=== PATIENT | female | born 1985 | race Caucasian/White ===

== ENCOUNTER 2020-02-23 12:05 | Emergency (ER) | payer SELFPAY ==
--- NOTE | 2020-02-23 14:03 | RAD REPORT ---
EXAM DESCRIPTION: Miguel Single View02/23/2020 1:51 pm CLINICAL HISTORY: PALPITATIONS COMPARISON: none FINDINGS: The lungs are moderately to markedly hyperaerated The lungs appear clear of acute infiltrate. The heart is normal size IMPRESSION: COPD without visualization acute abnormality
[2020-02-23 14:11] LABS: Absolute Lymphocytes (CBC) 2.3 K/uL (0.7-4.9); Basophils % 1.3 % (0-1.3); Hematocrit 51.8 % (36.0-45.0); Lymphocytes % 17.6 % (15.3-44.8); RBC Red Blood Cell Count 5.85 M/uL (3.86-4.86)
[2020-02-23 14:29] LABS: ALT/SGPT 21 U/L (12-78); AST/SGOT 14 U/L (15-37); Albumin 4.6 g/dL (3.4-5.0); Alkaline Phosphatase 89 U/L (45-117); BUN Blood Urea Nitrogen 10 mg/dL (7-18); Bicarbonate 28 mmol/L (21-32); Bilirubin Direct < 0.1 mg/dL (0-0.2); Bilirubin Total 0.5 mg/dL (0.2-1.0); Glucose Level 92 mg/dL (74-106); Magnesium 2.2 mg/dL (1.8-2.4); Potassium 3.7 mmol/L (3.5-5.1); Sodium Level 139 mmol/L (136-145); Troponin (Emerg Dept Use Only) < 0.02 ng/mL (0.0-0.045)
[2020-02-23] MEDS ORDERED: NA CHLORIDE 0.9% 1,000 ML ONE (14:49)
[2020-02-23 15:11] LABS: Urine Blood NEGATIVE (NEG); Urine Glucose NEGATIVE (NEG); Urine Protein NEGATIVE (NEG); Urine Specific Gravity 1.015 (1.005-1.030)
--- NOTE | 2020-02-23 15:14 | ER ---
Nurse's Notes [facility] Name: Katrin Pringle Age: 34 yrs Sex: Female : 1985 Arrival Date: 02/23/2020 Time: 12:07 Bed 3 Private MD: Diagnosis: Palpitations;Essential (primary) hypertension;Tobacco abuse counseling;Tobacco use Presentation: 02/22 12:22 Chief complaint: Patient states: Sent by nurse from [facility] for further evaluation ss and treatment of high blood pressure and elevated pulse. Coronavirus screen: Proceed with normal triage. Patient denies a cough. Patient denies shortness of breath or difficulty breathing. Patient denies measured and/or subjective temperature greater than 100.4F prior to today's visit. Patient denies travel on a cruise ship or to a country the [facility] currently lists as an affected area. Patient denies contact with known and/or suspected case of COVID-19. Ebola Screen: Patient denies exposure to infectious person. Patient denies travel to an Ebola-affected area in the 21 days before illness onset. Initial Sepsis Screen: Does the patient meet any 2 criteria? HR > 90 bpm. No. Patient's initial sepsis screen is negative. Does the patient have a suspected source of infection? No. Patient's initial sepsis screen is negative. Risk Assessment: Do you want to hurt yourself or someone else? Patient reports no desire to harm self or others. Note VS prior to arrival 120/90 pulse 122, 07005 pulse 128. Onset of symptoms is unknown. 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 - Social history:: Smoking status: Patient reports the use of cigarette tobacco products, smokes one-half pack cigarettes per day. - Family history:: not pertinent. Screenin:02 Abuse screen: Denies threats or abuse. Denies injuries from another. Nutritional jl7 screening: No deficits noted. Tuberculosis screening: No symptoms or risk factors identified. Fall Risk IV access (20 points). Total Rowan Fall Scale indicates No Risk (0-24 pts). Assessment: 13:59 General: Appears in no apparent distress. uncomfortable, Behavior is calm, cooperative, jl7 appropriate for age. Pain: Denies pain. Neuro: Level of Consciousness is awake, alert, obeys commands, Oriented to person, place, time, situation. Cardiovascular: Reports shortness of breath, since x 3 days Denies chest pain, Patient's skin is warm and dry. Respiratory: Airway is patent Respiratory effort is even, unlabored, Respiratory pattern is regular, symmetrical. GI: Patient currently denies diarrhea, nausea, vomiting. Derm: Skin is pink, warm \T\ dry. 14:43 Reassessment: Patient appears in no apparent distress at this time. No changes from jl7 previously documented assessment. Patient and/or family updated on plan of care and expected duration. Pain level reassessed. Patient is alert, oriented x 3, equal unlabored respirations, skin warm/dry/pink. Vital Signs: 12:22 BP 146 / 97; Pulse 102; Resp 15; Temp 98.5(TE); Pulse Ox 100% on R/A; Weight 56.25 kg; ss Height 5 ft. 3 in. (160.02 cm); Pain 0/10; 14:02 BP 152 / 101; Pulse 75; Resp 16; Pulse Ox 100% ; Pain 0/10; jl7 14:42 BP 131 / 86; Pulse 76; Resp 15; Pulse Ox 100% ; Pain 0/10; jl7 15:25 BP 124 / 80; Pulse 73; Resp 16; Pulse Ox 100% ; jl7 12:22 Body Mass Index 21.97 (56.25 kg, 160.02 cm) ED Course: 12:07 Patient arrived in ED. as 12:26 Triage completed. ss 12:27 Arm band placed on right wrist. 13:38 Amandeep Vergara MD is Attending Physician. [facility] 13:41 Sridevi Wren RN is Primary Nurse. jl7 13:52 XRAY Chest (1 view) In Process Unspecified. EDMS 14:02 Patient has correct armband on for positive identification. Placed in gown. Bed in low jl7 position. Call light in reach. Side rails up X 1. monitor technician on. Pulse ox on. NIBP on. Warm blanket given. 14:02 Initial lab(s) drawn, by me, sent to lab. EKG done, by ED staff, reviewed by Amandeep Vergara MD. Inserted saline lock: 20 gauge in right antecubital area, using aseptic technique. Blood collected. 15:13 Dexter Vasquez MD is Referral Physician. [facility] 15:25 No provider procedures requiring assistance completed. IV discontinued, intact, jlJalil bleeding controlled, No redness/swelling at site. Pressure dressing applied. Administered Medications: 14:42 Drug: NS 0.9% 1000 ml Route: IV; Rate: 1 bolus; Site: right antecubital; Jalil 15:25 Follow up: Response: No adverse reaction; IV Status: Completed infusion; IV Intake: jl 1000ml Intake: 15:25 IV: 1000ml; Total: 1000ml. alana Outcome: 15:13 Discharge ordered by . yo 15:25 Discharged to home ambulatory. alana 15:25 Condition: stable 15:25 Discharge instructions given to patient, Instructed on discharge instructions, follow up and referral plans. medication usage, Demonstrated understanding of instructions, follow-up care, medications, Prescriptions given X 1. 15:26 Patient left the ED. alana Signatures: Dispatcher [employer] Amandeep Oconnell MD MD cha Martinez, Amelia as Smirch, Shelby, RN RN Sridevi Todd RN RN jl7
--- NOTE | 2020-02-23 15:15 | EDPHYS ---
Physician Documentation [facility] Name: Katrin Pringle Age: 34 yrs Sex: Female : 1985 Arrival Date: 02/23/2020 Time: 12:07 Bed 3 Private MD: ED Physician Amandeep Vergara HPI: 02/22 14:23 This 34 yrs old Female presents to ER via Ambulatory with complaints of yo Palpitations. 14:23 The patient presents with a history of heart racing. Context: The symptoms occur with yo light activity. Onset: The symptoms/episode began/occurred just prior to arrival, this morning. Duration: The patient or guardian reports multiple episodes, that have now resolved. Modifying factors: The symptoms are aggravated by nothing. The symptoms are alleviated by nothing. Associated signs and symptoms: The patient has no apparent associated signs or symptoms. Severity of symptoms: At their worst the symptoms were mild in the emergency department the symptoms are unchanged. The patient has not experienced similar symptoms in the past. 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 - Social history:: Smoking status: Patient reports the use of cigarette tobacco products, smokes one-half pack cigarettes per day. - Family history:: not pertinent. ROS: 14:23 Constitutional: Negative for fever, chills, and weight loss, Eyes: Negative for injury, yo pain, redness, and discharge, ENT: Negative for injury, pain, and discharge, Neck: Negative for injury, pain, and swelling, Respiratory: Negative for shortness of breath, cough, wheezing, and pleuritic chest pain, Abdomen/GI: Negative for abdominal pain, nausea, vomiting, diarrhea, and constipation, Back: Negative for injury and pain, : Negative for injury, bleeding, discharge, and swelling, MS/Extremity: Negative for injury and deformity, Skin: Negative for injury, rash, and discoloration, Neuro: Negative for headache, weakness, numbness, tingling, and seizure, Psych: Negative for depression, anxiety, suicide ideation, homicidal ideation, and hallucinations, Allergy/Immunology: Negative for hives, rash, and allergies, Endocrine: Negative for neck swelling, polydipsia, polyuria, polyphagia, and marked weight changes, Hematologic/Lymphatic: Negative for swollen nodes, abnormal bleeding, and unusual bruising. 14:23 Cardiovascular: Positive for palpitations. Exam: 14:23 Constitutional: This is a well developed, well nourished patient who is awake, alert, yo and in no acute distress. Head/Face: Normocephalic, atraumatic. Eyes: Pupils equal round and reactive to light, extra-ocular motions intact. Lids and lashes normal. Conjunctiva and sclera are non-icteric and not injected. Cornea within normal limits. Periorbital areas with no swelling, redness, or edema. ENT: Nares patent. No nasal discharge, no septal abnormalities noted. Tympanic membranes are normal and external auditory canals are clear. Oropharynx with no redness, swelling, or masses, exudates, or evidence of obstruction, uvula midline. Mucous membranes moist. Neck: Trachea midline, no thyromegaly or masses palpated, and no cervical lymphadenopathy. Supple, full range of motion without nuchal rigidity, or vertebral point tenderness. No Meningismus. Chest/axilla: Normal chest wall appearance and motion. Nontender with no deformity. No lesions are appreciated. Cardiovascular: Regular rate and rhythm with a normal S1 and S2. No gallops, murmurs, or rubs. Normal PMI, no JVD. No pulse deficits. Respiratory: Lungs have equal breath sounds bilaterally, clear to auscultation and percussion. No rales, rhonchi or wheezes noted. No increased work of breathing, no retractions or nasal flaring. Abdomen/GI: Soft, non-tender, with normal bowel sounds. No distension or tympany. No guarding or rebound. No evidence of tenderness throughout. Back: No spinal tenderness. No costovertebral tenderness. Full range of motion. Female : Normal external genitalia. Skin: Warm, dry with normal turgor. Normal color with no rashes, no lesions, and no evidence of cellulitis. MS/ Extremity: Pulses equal, no cyanosis. Neurovascular intact. Full, normal range of motion. Neuro: Awake and alert, GCS 15, oriented to person, place, time, and situation. Cranial nerves II-XII grossly intact. Motor strength 5/5 in all extremities. Sensory grossly intact. Cerebellar exam normal. Normal gait. Psych: Awake, alert, with orientation to person, place and time. Behavior, mood, and affect are within normal limits. 14:23 Musculoskeletal/extremity: DVT Exam: No signs of deep vein thrombosis. no pain, no swelling, no tenderness, negative Homans' sign noted on exam, no appreciated bluish discoloration, no erythema, no increased warmth. 14:57 ECG was reviewed by the Attending Physician. [facility] Vital Signs: 12:22 BP 146 / 97; Pulse 102; Resp 15; Temp 98.5(TE); Pulse Ox 100% on R/A; Weight 56.25 kg; ss Height 5 ft. 3 in. (160.02 cm); Pain 0/10; 14:02 BP 152 / 101; Pulse 75; Resp 16; Pulse Ox 100% ; Pain 0/10; jl7 14:42 BP 131 / 86; Pulse 76; Resp 15; Pulse Ox 100% ; Pain 0/10; jl7 15:25 BP 124 / 80; Pulse 73; Resp 16; Pulse Ox 100% ; jl7 12:22 Body Mass Index 21.97 (56.25 kg, 160.02 cm) ss MDM: 13:38 Patient medically screened. [facility] 14:24 Data reviewed: vital signs, nurses notes, EMS record, lab test result(s), EKG, yo radiologic studies, plain films. 14:25 ИРИНА Risk Score: Total Score = 0. Differential diagnosis: arrythmia, dehydration, yo stress disorder. Data interpreted: radiation monitor: rate is 75 beats/min, rhythm is normal sinus rhythm, Pulse oximetry: on room air is 100 %. Test interpretation: by ED physician or midlevel provider: ECG, plain radiologic studies. Counseling: I had a detailed discussion with the patient and/or guardian regarding: the historical points, exam findings, and any diagnostic results supporting the discharge/admit diagnosis, the presence of at least one elevated blood pressure reading (>120/80) during this emergency department visit, lab results, radiology results, the need for outpatient follow up, for definitive care, a internship coordinator. Response to treatment: the patient's symptoms have markedly improved after treatment, the patient's condition has returned to base line. 02/22 13:39 Order name: Basic Metabolic Panel; Complete Time: 15:13 [facility] 02/22 13:39 Order name: CBC with Diff; Complete Time: 15:13 [facility] 02/22 13:39 Order name: LFT's; Complete Time: 15:13 [facility] 02/22 13:39 Order name: Magnesium; Complete Time: 15:13 [facility] 02/22 13:39 Order name: Troponin (emerg Dept Use Only); Complete Time: 15:13 [facility] 02/22 13:39 Order name: TSH; Complete Time: 15:13 [facility] 02/22 13:39 Order name: XRAY Chest (1 view); Complete Time: 15:13 [facility] 02/22 13:39 Order name: EKG; Complete Time: 13:40 [facility] 02/22 13:39 Order name: Cardiac monitoring; Complete Time: 14:18 [facility] 02/22 13:39 Order name: EKG - Nurse/Tech; Complete Time: 14:17 [facility] 02/22 13:39 Order name: IV Saline Lock; Complete Time: 14:17 [facility] 02/22 14:41 Order name: Urine Dipstick--Ancillary (enter results); Complete Time: 15:13 02/22 14:41 Order name: Urine --Ancillary (enter results); Complete Time: 15:13 02/22 13:39 Order name: Labs collected and sent; Complete Time: 14:17 [facility] 02/22 13:39 Order name: O2 Per Protocol; Complete Time: 14:17 [facility] 02/22 13:39 Order name: O2 Sat Monitoring; Complete Time: 14:17 [facility] 02/22 13:39 Order name: Urine Dipstick-Ancillary (obtain specimen); Complete Time: 14:40 [facility] 02/22 13:39 Order name: Urine Test (obtain specimen); Complete Time: 14:40 [facility] EC:57 Rate is 74 beats/min. Rhythm is regular. QRS [place] is Normal. NH interval is normal. QRS yo interval is normal. QT interval is normal. No Q waves. T waves are Normal. No ST changes noted. Clinical impression: Normal ECG and No evidence of ischemia. Interpreted by me. Reviewed by me. Administered Medications: 14:42 Drug: NS 0.9% 1000 ml Route: IV; Rate: 1 bolus; Site: right antecubital; jl7 15:25 Follow up: Response: No adverse reaction; IV Status: Completed infusion; IV Intake: jl7 1000ml Disposition: 02/23/20 15:13 Discharged to Home. Impression: Palpitations, Essential (primary) hypertension, Tobacco abuse counseling, Tobacco use. - Condition is Stable. - Discharge Instructions: Hypertension, Palpitations, Steps to Quit Smoking, Smoking Hazards, Hypertension, [id number], Steps to Quit Smoking, [id number], How to Take Your Blood Pressure, [id number], Palpitations, Ehed-my-Ynao, Managing Your Hypertension. - Prescriptions for Toprol XL 25 mg Oral Tablet - take 1 tablet by ORAL route once daily; 20 tablet. - Medication Reconciliation Form, Thank You Letter, Antibiotic Education, Prescription Opioid Use form. - Follow up: Private Physician; When: 2 - 3 days; Reason: Recheck today's complaints, Continuance of care, Re-evaluation by your physician. Follow up: Dexter Vasquez; When: 2 - 3 days; Reason: Recheck today's complaints, Re-evaluation by your physician. - Problem is new. - Symptoms have improved. Signatures: Dispatcher [employer] EDMS Amandeep Vergara MD MD cha Smirch, Shelby, RN RN ss Leal, Jahala, RN RN jl7 Corrections: (The following items were deleted from the chart) 15:26 15:13 02/23/2020 15:13 Discharged to Home. Impression: Palpitations; Essential jl7 (primary) hypertension; Tobacco abuse counseling; Tobacco use. Condition is Stable. Discharge Instructions: Hypertension, Palpitations, Hypertension, Cebn-as-Ownb, How to Take Your Blood Pressure, [id number], Palpitations, [id number], Managing Your Hypertension. Prescriptions for Toprol XL 25 mg Oral Tablet - take 1 tablet by ORAL route once daily; 20 tablet. and Forms are Medication Reconciliation Form, Thank You Letter, Antibiotic Education, Prescription Opioid Use. Follow up: Private Physician; When: 2 - 3 days; Reason: Recheck today's complaints, Continuance of care, Re-evaluation by your physician. Follow up: Dexter Vasquez; When: 2 - 3 days; Reason: Recheck today's complaints, Re-evaluation by your physician. Problem is new. Symptoms have improved. yo
[2020-02-23 15:37] VITALS: TEMP 98.5; O2SAT 100
[2020-02-23 15:51] VITALS: BP 124/80
--- NOTE | 2020-02-24 07:26 | EKG ---
Test Date: 2020-02-23 Test Time: 13:49:44 Glass Decorator: DEWEY MEASUREMENT RESULTS: Intervals: Rate: 74 KS: 116 QRSD: 78 QT: 374 QTc: 415 [place]: P: 67 KS: 116 QRS: 67 T: 53 INTERPRETIVE STATEMENTS: Normal sinus rhythm with sinus arrhythmia Possible Left atrial enlargement Borderline ECG No previous ECG available for comparison Electronically Signed On 02-24-20 07:24:13 CDT by Dexter Vasquez
== END 2020-02-23 15:26 | disposition home or self-care (01) ==
LOC: ER 12:05
DX: I10 Essential (primary) hypertension (principal); Z72.0 Tobacco use; Z71.6 Tobacco abuse counseling
CPT/HCPCS: 36415; 71045; 80048; 80076; 81003; 81025; 83735; 84443; 84484; 85025; 93005; 96360; 99285; J7030